=== PATIENT | female | born 1960 | race Caucasian/White ===

== ENCOUNTER 2019-09-18 17:12 | Observation (INO) | payer MEDICARE, MEDICAID, SELFPAY ==
--- NOTE | ~2019-09-18 | XR_ITS ---
EXAMINATION: XR hip RT 2V w AP pelvis EXAM DATE: 09/18/2019 18:27 INDICATION: Initial encounter following injury, with pain of the pelvis, right hip. Fall. TECHNIQUE: Right hip frontal, crosstable lateral and 'frog-leg' projections for interpretation. Front al projection pelvis. Comparison is made to prior examination from 01/01/2018. FINDINGS: Interval development of significant collapse of the right femoral head and severe osteoarth ritis likely secondary to femoral head avascular necrosis. Interval development of mild protrusio jaleel tabula. There are no acute fractures identified. Pelvic ring appears intact. Left hip arthroplasty. M ild to moderate lumbar levoscoliosis. Sacrum, sacroiliac joints, sacral arcuate lines are intact. IMPRESSION: 1. Development of right femoral head collapse, severe osteoarthritis likely from avascular necrosis. 2. Development of protrusio acetabula. 3. No acute fracture suspected. Reviewed, dictated and finalized at location A. PREAD FOLDER IMPRESSION: 1. Development of right femoral head collapse, severe osteoarthritis likely fr om avascular necrosis. 2. Development of protrusio acetabula. 3. No acute fracture suspected.
--- NOTE | ~2019-09-18 | CT_ITS ---
EXAMINATION: CT brain wo con EXAM DATE: 09/18/2019 18:09 INDICATION: Multiple falls, head injury. TECHNIQUE: Spiral CT of the head was performed without contrast. Axial, coronal and sagittal images were reviewed. The dose-length product (DLP) for this examination was 605.33 mGy-cm. The exposure w as tailored according to patient size, and iterative reconstruction (ASIR) was used as additional dos e reduction technique. There is no prior study for comparison. FINDINGS: There is no acute intraparenchymal hemorrhage. No evidence of intraparenchymal brain mass lesion. No evidence of acute infarction. Please note that initial head CT has limited sensitivity f or small or acute infarctions. There is small old right occipital lobe infarction. There are old sma ll to moderate regions of encephalomalacia in the frontal lobes inferomedially, location suggests cristiano ology of prior contusions. There is mild periventricular and subcortical hypodensity, nonspecific bu t probably related to small vessel ischemic disease. There is mild prominence of the sulci and vent ricles related to cerebral atrophy. There is intracranial carotid arteriosclerosis. There are no e xtra-axial collections. There is no mass effect or midline shift. The orbits are unremarkable. Sof t tissue is unremarkable. The visualized sinuses and mastoid air cells are well aerated. IMPRESSION: 1. No acute intracranial findings. 2. Chronic age related findings. 3. Old bifrontal small to moderate encephalomalacia. 4. Old small right occipital lobe infarction. Reviewed, dictated and finalized at location A. GE ASSISTANT
--- NOTE | ~2019-09-18 | XR_ITS ---
EXAMINATION: XR chest 2V EXAM DATE: 09/18/2019 18:27 INDICATION: Fall, weakness, high blood pressure. TECHNIQUE: Frontal and lateral projections of the chest obtained and reviewed. Comparison is made to prior examination from 11/03/2015. FINDINGS: The lungs are clear. There are no pleural effusions. The cardiomediastinal silhouette is within normal limits. There is no pneumothorax suspected. Development of moderate bilateral shoulde r osteoarthritis. IMPRESSION: No acute cardiopulmonary findings. Reviewed, dictated and finalized at location A. CTIOUS WASTE TECHNICIAN
[2019-09-18 17:18] VITALS: BP 138/69; PULSE 87; RESP 24; TEMP 36.6; O2SAT 98
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
--- NOTE | 2019-09-18 17:48 | ECG_ITS ---
Measurements Intervals [place] Rate: 77 P: 33 ND: 167 QRS: 40 QRSD: 93 T: 54 QT: 394 QTc: 446 Interpretive Statements SINUS RHYTHM BASELINE ARTIFACT- I, II, III, V1-V3 BORDERLINE ECG Electronically Signed On 09-19-2019 8:45:53 CORPORATE QUALITY MANAGER by Joes Perez D.O.
[2019-09-18] MEDS: SODIUM CHLORIDE 0.9% IV 1,000 ML 999 ML IV CONT (18:50)
[2019-09-18 18:51] VITALS: BP 129/87; PULSE 77; RESP 24; TEMP 36.8; O2SAT 97
[2019-09-18 19:09] LABS: Glucose Point of Care 58 (65-105)
[2019-09-18 19:10] LABS: Basophils Percent Auto 0.2 % (0.2-1.2); Eosinophils Absolute Auto 0.3 K/mm3 (0-0.3); Eosinophils Percent Auto 2.1 % (0-4.4); Hematocrit 42.3 % (37.0-47.0); Hemoglobin 13.2 g/dL (12.0-15.0); Immature Granulocyte Absolute 0.04 K/mm3 (0.00-0.031); Immature Granulocyte Percent A 0.3 % (0-0.5); Lymphocytes Absolute Auto 1.94 K/mm3 (0.9-3.2); Lymphocytes Percent Auto 16.2 % (18.3-44.2); Mean Corpuscular HGB Conc 31.2 g/dl (32-36); Mean Corpuscular Hemoglobin 29.3 pg (26-34); Mean Platelet Volume 9.6 fl (7.4-10.4); Monocytes Percent Auto 8.3 % (2.6-8.5); Neutrophils Absolute Auto 8.7 K/mm3 (1.3-6.7); Neutrophils Percent Auto 72.9 % (45.5-73.1); Platelet Count Result 321 k/mm3 (150-375); Red Cell Distribution Width 13.8 % (11.5-14.5); White Blood Count 11.9 K/mm3 (4.5-10.0)
[2019-09-18 19:18] LABS: Add Urine Microscopic? YES; Appearance Urine Cloudy (Clear); Bacteria Urine 1+ /hpf; Bilirubin Urine Negative (Negative); Blood Urine 2+ (Negative); Color Urine Yellow (Yellow); Glucose Urine UA Negative (Negative); Ketones Urine Negative (Negative); Leukocyte Esterase Ur 3+ LEU/UL (Negative); Mucus Urine Rare /lpf; Nitrate Urine Positive (Negative); Protein Urine 1+ mg/dL (Negative); RBC Urine 51-75 /hpf (0-2); Specific Grav Ur 1.012 (1.001-1.035); Urobilinogen Urine Negative mg/dL (<2.0); WBC Urine >75 /hpf
[2019-09-18 19:23] LABS: Blood Urea Nitrogen 14 mg/dL (7-17); Calcium 9.2 mg/dL (8.4-10.2); Carbon Dioxide 27 mmol/L (22-30); Chloride 100 mmol/L (98-107); Estimated CRCL calculation 85 ml/min; Estimated Glomerular Filt Rate > 60; Glucose 137 mg/dL (65-105); INR 0.9; Potassium 3.8 mmol/L (3.4-5.0); Prothrombin Time 12.1 Seconds (11.1-14.7); Sodium 138 mmol/L (137-145)
[2019-09-18 19:24] LABS: Partial Thromboplastin Time 27.1 SECONDS (22.3-36.8)
[2019-09-18 19:35] LABS: Troponin I < 0.012 ng/mL (0.000-0.034)
[2019-09-18 19:36] LABS: Glucose Point of Care 130 (65-105)
[2019-09-18] MEDS: CEPHALEXIN 500 MG CAPSULE PO (20:11)
[2019-09-18 20:54] VITALS: BP 131/78; PULSE 81; RESP 18; O2SAT 97
[2019-09-18 21:00] VITALS: BP 109/87; PULSE 97; RESP 18; TEMP 36.6; O2SAT 98; BMI 37.3
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
--- NOTE | 2019-09-18 21:21 | ADMGEN ---
This patient, Rosemary Gallardo, was admitted to [facility] Room 325-01 at 2105. Patient/family oriented to hospital policies and general routines including ID bracelet, bed and alarms, visiting hours, pain management, procedures, bathroom and other care routines, personal items, smoking policy, room service/diet, and visiting hours. Valuables list has been completed. Information on how to activate the Rapid Response Team has been discussed. Patient/Family are encouraged to report perceived risks to care and to ask questions if they do not understand what they are told or what they should do.
[2019-09-18 23:43] LABS: Glucose Point of Care 139 (65-105)
[2019-09-19] MEDS: MORPHINE SULFATE 4 MG/ML INJ 2 MG IV PUSH (02:23)
[2019-09-19 06:00] VITALS: BP 154/88; PULSE 80; RESP 18; TEMP 36.6; O2SAT 96
[2019-09-19 06:20] LABS: Basophils Percent Auto 0.2 % (0.2-1.2); Eosinophils Absolute Auto 0.3 K/mm3 (0-0.3); Eosinophils Percent Auto 2.5 % (0-4.4); Hematocrit 41.1 % (37.0-47.0); Hemoglobin 12.6 g/dL (12.0-15.0); Immature Granulocyte Absolute 0.05 K/mm3 (0.00-0.031); Immature Granulocyte Percent A 0.5 % (0-0.5); Lymphocytes Absolute Auto 1.97 K/mm3 (0.9-3.2); Lymphocytes Percent Auto 19.1 % (18.3-44.2); Mean Corpuscular HGB Conc 30.7 g/dl (32-36); Mean Corpuscular Hemoglobin 28.8 pg (26-34); Mean Corpuscular Volume 93.8 fl (80-100); Mean Platelet Volume 9.7 fl (7.4-10.4); Monocytes Absolute Auto 0.9 K/mm3 (0.1-0.6); Monocytes Percent Auto 8.8 % (2.6-8.5); Neutrophils Absolute Auto 7.1 K/mm3 (1.3-6.7); Neutrophils Percent Auto 68.9 % (45.5-73.1); Platelet Count Result 284 k/mm3 (150-375); Red Blood Count 4.38 M/mm3 (4.2-5.4); Red Cell Distribution Width 13.8 % (11.5-14.5); White Blood Count 10.3 K/mm3 (4.5-10.0)
[2019-09-19 07:33] LABS: Blood Urea Nitrogen 11 mg/dL (7-17); Calcium 8.8 mg/dL (8.4-10.2); Carbon Dioxide 27 mmol/L (22-30); Chloride 106 mmol/L (98-107); Estimated CRCL calculation 84 ml/min; Estimated Glomerular Filt Rate > 60; Glucose 106 mg/dL (65-105); Potassium 4.1 mmol/L (3.4-5.0); Sodium 139 mmol/L (137-145)
[2019-09-19] MEDS: ACETAMINOPHEN 325 MG TABLET 650 MG PO ×2 (08:16→22:07)
[2019-09-19 08:45] LABS: Glucose Point of Care 86 (65-105)
[2019-09-19] MEDS: INSULIN GLARGINE (*BKC) 100 UNITS/ML 22 UNITS SUB-Q (09:23)
[2019-09-19 09:27] VITALS: BP 152/86; PULSE 73; RESP 18; TEMP 36.7; O2SAT 96
[2019-09-19] MEDS: ARIPIPRAZOLE 10 MG TABLET 20 MG PO (09:30)
[2019-09-19] MEDS: ASPIRIN 81 MG ENTERIC TABLET PO (09:36)
[2019-09-19] MEDS: ATORVASTATIN 40 MG TABLET 80 MG PO (09:36)
[2019-09-19] MEDS: DICLOFENAC SOD 75 MG TABLET.EC PO ×2 (09:37→17:07)
[2019-09-19] MEDS: DOCUSATE SODIUM 100 MG CAPSULE PO ×2 (09:37→17:07)
[2019-09-19] MEDS: LEVOTHYROXINE SODIUM 150 MCG TABLET PO (09:37)
[2019-09-19] MEDS: busPIRone HCL 10 MG TABLET PO ×3 (09:37→17:06)
[2019-09-19] MEDS: lisinopriL 20 MG TABLET 40 MG PO (09:38)
[2019-09-19] MEDS: CEPHALEXIN 500 MG CAPSULE PO ×3 (10:47→22:06)
[2019-09-19 12:24] LABS: Glucose Point of Care 174 (65-105)
--- NOTE | 2019-09-19 12:47 | PM.IMPN ---
Progress Note: A&P Assessment and Plan (1) Avascular necrosis of bone of right hip: Code(s): M87.051 - Idiopathic aseptic necrosis of right femur Status: Acute Assessment and Plan: Pain is reasonable today. Per nursing, Dr. Munoz will not be doing surgery; possibly follow up with Dr. Celis as outpatient for elective surgery. Do to multiple recent falls, plan will be for placement in SNF for rehab. CC to work on placement Pain control Appreciate Ortho recommendations. PT/OT (2) Diabetes: Qualifiers: Diabetes mellitus type: type 2 Diabetes mellitus superintendent marine oil terminal insulin use: with superintendent marine oil terminal use Diabetes mellitus complication status: without complication Qualified Code(s): E11.9 - Type 2 diabetes mellitus without complications; Z79.4 - terminal supervisor (current) use of insulin Code(s): E11.9 - Type 2 diabetes mellitus without complications Status: Chronic Assessment and Plan: BGL reasonable in the 80s-100s. Continue Accu-Cheks. Sliding scale insulin coverage. Hypoglycemic protocol. Continue sitagliptin. Continue long-acting glargine insulin. (3) Hypertension: Qualifiers: Hypertension type: unspecified Qualified Code(s): I10 - Essential (primary) hypertension Code(s): I10 - Essential (primary) hypertension Status: Chronic Assessment and Plan: BP 150s sys Continue lisinopril. Continue to monitor Consider PRN IV hydralizine if needed (4) Hypothyroid: Qualifiers: Hypothyroidism type: unspecified Qualified Code(s): E03.9 - Hypothyroidism, unspecified Code(s): E03.9 - Hypothyroidism, unspecified Status: Chronic Assessment and Plan: Continue levothyroxine. (5) Hyperlipidemia: Qualifiers: Hyperlipidemia type: unspecified Qualified Code(s): E78.5 - Hyperlipidemia, unspecified Code(s): E78.5 - Hyperlipidemia, unspecified Status: Chronic Assessment and Plan: Continue atorvastatin. (6) Abnormal urinalysis: Code(s): R82.90 - Unspecified abnormal findings in urine Status: Acute Assessment and Plan: Patient is on Keflex 500 mg Q8 hr. No symptoms today Await urine cultures Tailor abx to sensitivities d/c abx if no grwoth Subjective Date/time seen: 09/19/19 12:47 Interval history: Patient is a 59 yo F with history of DM and avascular necrosis of right hip likely from OA who is here for recurrent falls due to right hip pain/weakness. Patient states her pain is okay today. She has trouble moving at home but usually uses a walker, but recently had 2 falls. No other complaints today. ROS she does not brbpr on toilet tissue in the past. Denies f/c/ns, headaches, dizziness, lightheadedness, cp/palpitations, sob, cough, abd pain, n/v/d/c, melena, dysuria, hematuria, calf pain/swelling, s/sx stroke Review of Systems Review of Systems: All systems reviewed & are unremarkable except as noted in HPI and below Exam Narrative: Exam Narrative: Patient lying supine in bed, no acute distress Const: General: cooperative, alert, awake, ill appearing chronically and poor hygiene Nutritional Appearance: obese Orientation/consciousness: oriented x3 HENMT: Head: normal to inspection General nose exam: external nose normal Face and sinus: face symmetric Eyes: General: appearance normal, both eyes and all related structures EOM: EOM intact bilaterally Neck: Neck: trachea midline and supple Resp: Effort & Inspection: normal respiratory effort Auscultation: clear to auscultation bilaterally Cardio: Rate: regular rate Rhythm: regular rhythm Heart sounds: no murmurs GI: GI Palp: No abdominal tenderness Auscultation: normal bowel sounds Skin
[2019-09-19 14:00] VITALS: BP 159/78; PULSE 78; RESP 20; TEMP 36.5; O2SAT 96
[2019-09-19 17:28] LABS: Glucose Point of Care 160 (65-105)
[2019-09-19 20:26] LABS: Glucose Point of Care 124 (65-105)
[2019-09-19 22:00] VITALS: BP 140/58; PULSE 78; RESP 18; TEMP 36.8; O2SAT 96
[2019-09-19] MEDS: INSULIN GLARGINE (*BKC) 100 UNITS/ML 24 UNITS SUB-Q (22:09)
[2019-09-20 06:00] VITALS: BP 149/69; PULSE 71; RESP 18; TEMP 36.4; O2SAT 97
[2019-09-20] MEDS: LEVOTHYROXINE SODIUM 150 MCG TABLET PO (06:33)
[2019-09-20] MEDS: CEPHALEXIN 500 MG CAPSULE PO ×3 (06:34→21:24)
[2019-09-20 06:41] LABS: Hematocrit 40.4 % (37.0-47.0); Hemoglobin 12.8 g/dL (12.0-15.0); Mean Corpuscular HGB Conc 31.7 g/dl (32-36); Mean Corpuscular Hemoglobin 29.2 pg (26-34); Mean Corpuscular Volume 92.2 fl (80-100); Mean Platelet Volume 9.4 fl (7.4-10.4); Platelet Count Result 275 k/mm3 (150-375); Red Blood Count 4.38 M/mm3 (4.2-5.4); Red Cell Distribution Width 13.7 % (11.5-14.5); White Blood Count 8.2 K/mm3 (4.5-10.0)
[2019-09-20 07:28] LABS: Glucose Point of Care 96 (65-105)
[2019-09-20 08:18] VITALS: BP 167/73; PULSE 74; RESP 18; TEMP 36.6; O2SAT 97
[2019-09-20] MEDS: ARIPIPRAZOLE 10 MG TABLET 20 MG PO (08:24)
[2019-09-20] MEDS: ACETAMINOPHEN 325 MG TABLET 650 MG PO ×2 (08:24→20:12)
[2019-09-20] MEDS: ATORVASTATIN 40 MG TABLET 80 MG PO (08:25)
[2019-09-20] MEDS: busPIRone HCL 10 MG TABLET PO ×3 (08:25→18:51)
[2019-09-20] MEDS: DICLOFENAC SOD 75 MG TABLET.EC PO ×2 (08:25→18:52)
[2019-09-20] MEDS: ASPIRIN 81 MG ENTERIC TABLET PO (08:25)
[2019-09-20] MEDS: lisinopriL 20 MG TABLET 40 MG PO (08:26)
[2019-09-20] MEDS: DOCUSATE SODIUM 100 MG CAPSULE PO ×2 (08:26→18:52)
[2019-09-20 08:32] LABS: Glucose Point of Care 164 (65-105)
[2019-09-20 11:57] LABS: Glucose Point of Care 144 (65-105)
--- NOTE | 2019-09-20 13:33 | PM.IMPN ---
Progress Note: A&P Assessment and Plan (1) Avascular necrosis of bone of right hip: Code(s): M87.051 - Idiopathic aseptic necrosis of right femur Status: Acute Assessment and Plan: Pain is reasonable today. Dr. Munoz will not be doing surgery; possibly follow up with Dr. Celis as outpatient for elective surgery. Due to multiple recent falls, plan will be for placement in SNF for rehab. CC to work on placement Pain control Appreciate Ortho recommendations. PT/OT (2) Diabetes: Qualifiers: Diabetes mellitus type: type 2 Diabetes mellitus custodial insulin use: with custodial use Diabetes mellitus complication status: without complication Qualified Code(s): E11.9 - Type 2 diabetes mellitus without complications; Z79.4 - alf (current) use of insulin Code(s): E11.9 - Type 2 diabetes mellitus without complications Status: Chronic Assessment and Plan: BGL reasonable in the 90s-100s. Continue Accu-Cheks. Sliding scale insulin coverage. Hypoglycemic protocol. Continue sitagliptin. Continue long-acting glargine insulin. (3) Hypertension: Qualifiers: Hypertension type: unspecified Qualified Code(s): I10 - Essential (primary) hypertension Code(s): I10 - Essential (primary) hypertension Status: Chronic Assessment and Plan: BP 160s sys Continue lisinopril. Continue to monitor PRN IV hydralizine with parameters set (4) Hypothyroid: Qualifiers: Hypothyroidism type: unspecified Qualified Code(s): E03.9 - Hypothyroidism, unspecified Code(s): E03.9 - Hypothyroidism, unspecified Status: Chronic Assessment and Plan: Continue levothyroxine. (5) Hyperlipidemia: Qualifiers: Hyperlipidemia type: unspecified Qualified Code(s): E78.5 - Hyperlipidemia, unspecified Code(s): E78.5 - Hyperlipidemia, unspecified Status: Chronic Assessment and Plan: Continue atorvastatin. (6) Abnormal urinalysis: Code(s): R82.90 - Unspecified abnormal findings in urine Status: Acute Assessment and Plan: Patient is on Keflex 500 mg Q8 hr. No symptoms today Cultures show E. Coli; await sensitivities Tailor abx to sensitivities d/c abx if no growth Subjective Date/time seen: 09/20/19 13:33 Interval history: Patient is a 59 yo F with history of DM and avascular necrosis of right hip likely from OA who is here for recurrent falls due to right hip pain/weakness. Patient states her pain is okay today; about the same as yesterday. She has trouble moving at home but usually uses a walker, but recently had 2 falls. No other complaints today. Denies f/c/ns, headaches, dizziness, lightheadedness, cp/palpitations, sob, cough, abd pain, n/v/d/c, melena, dysuria, hematuria, calf pain/swelling, s/sx stroke. Review of Systems Review of Systems: All systems reviewed & are unremarkable except as noted in HPI and below Exam Narrative: Exam Narrative: Patient lying supine in bed, no acute distress Const: General: cooperative, alert, awake, ill appearing chronically and poor hygiene Nutritional Appearance: obese Orientation/consciousness: oriented x3 HENMT: Head: normal to inspection General nose exam: external nose normal Face and sinus: face symmetric Eyes: General: appearance normal, both eyes and all related structures EOM: EOM intact bilaterally Neck: Neck: trachea midline and supple Resp: Effort & Inspection: normal respiratory effort Auscultation: clear to auscultation bilaterally Cardio: Rate: regular rate Rhythm: regular rhythm Heart sounds: no murmurs GI: GI Palp: No abdominal tenderness Auscultation: normal bowel sounds Skin: General ski
[2019-09-20 14:30] VITALS: BP 128/76; PULSE 76; RESP 20; TEMP 36.9; O2SAT 97
[2019-09-20] MEDS: INSULIN GLARGINE (*BKC) 100 UNITS/ML 11 UNITS SUB-Q (15:34)
--- NOTE | 2019-09-20 15:36 | PC.NURSE ---
Morning lantus not given, Dipak rashid notified 1500 order received for 11 units now.
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
[2019-09-20 17:54] LABS: Glucose Point of Care 114 (65-105)
[2019-09-20] MEDS: INSULIN GLARGINE (*BKC) 100 UNITS/ML 24 UNITS SUB-Q (20:13)
[2019-09-20 20:23] LABS: Glucose Point of Care 170 (65-105)
[2019-09-20 22:00] VITALS: BP 132/50; PULSE 78; RESP 16; TEMP 36.2; O2SAT 87
[2019-09-21] MEDS: ACETAMINOPHEN 325 MG TABLET 650 MG PO (04:12)
[2019-09-21] MEDS: CEPHALEXIN 500 MG CAPSULE PO (05:28)
[2019-09-21] MEDS: LEVOTHYROXINE SODIUM 150 MCG TABLET PO (05:28)
[2019-09-21 06:00] VITALS: BP 143/67; PULSE 73; RESP 18; TEMP 36.7; O2SAT 95
[2019-09-21 07:50] LABS: Glucose Point of Care 111 (65-105)
[2019-09-21] MEDS: busPIRone HCL 10 MG TABLET PO ×2 (08:15→12:34)
[2019-09-21] MEDS: ARIPIPRAZOLE 10 MG TABLET 20 MG PO (08:15)
[2019-09-21] MEDS: DICLOFENAC SOD 75 MG TABLET.EC PO (08:16)
[2019-09-21] MEDS: ASPIRIN 81 MG ENTERIC TABLET PO (08:16)
[2019-09-21] MEDS: DOCUSATE SODIUM 100 MG CAPSULE PO (08:16)
[2019-09-21] MEDS: ATORVASTATIN 40 MG TABLET 80 MG PO (08:16)
[2019-09-21] MEDS: lisinopriL 20 MG TABLET 40 MG PO (08:21)
[2019-09-21 08:22] VITALS: BP 149/70; PULSE 74; RESP 18; O2SAT 96
[2019-09-21] MEDS: INSULIN GLARGINE (*BKC) 100 UNITS/ML 22 UNITS SUB-Q (09:08)
[2019-09-21] MEDS: NITROFURANTOIN MONOHYD MACROCR 100 MG CAP PO (09:10)
--- NOTE | 2019-09-21 11:26 | PCOTNOTE ---
Attempted OT treatment session. Patient requesting that OT come back later despite encouragement from OT. Will attempt treatment at later time.
[2019-09-21 11:37] LABS: Glucose Point of Care 122 (65-105)
[2019-09-21 14:00] VITALS: BP 146/75; PULSE 84; RESP 16; TEMP 36.5; O2SAT 97
--- NOTE | 2019-09-21 15:22 | PM.DS ---
DS: Diagnosis Admitting Diagnosis Admitting Diagnosis: Idiopathic aseptic necrosis of right femur Discharge Diagnosis (1) Avascular necrosis of bone of right hip: Code(s): M87.051 - Idiopathic aseptic necrosis of right femur Status: Acute Assessment and Plan: Pain is reasonable today. Dr. Munoz will not be doing surgery. She has seen Dr Celis in the past but she reports he will no longer preform surgery on her. She has an appointment at [facility] with an orthopedic doctor 10/14/2019. She did well with PT/OT today, walked 60 feet with a walker. Insurance did not approve SNF placement. She will be discharged home to her [facility] with Home Health. He will be able to assist her. She will also need to purchase a Walker to use to help with stabolization and then follow up with [facility] with appointment 10/14/2019. PRN pain medications as tolerated. (2) Diabetes: Qualifiers: Diabetes mellitus complication status: without complication Diabetes mellitus intermediate teacher insulin use: with group home use Diabetes mellitus type: type 2 Qualified Code(s): E11.9 - Type 2 diabetes mellitus without complications; Z79.4 - jail (current) use of insulin Code(s): E11.9 - Type 2 diabetes mellitus without complications Status: Chronic Assessment and Plan: BGL reasonable in the 100-120s.Continue long-acting glargine insulin and sitagliptin. Stable at this time. Continue checking glucose. (3) Hypertension: Qualifiers: Hypertension type: unspecified Qualified Code(s): I10 - Essential (primary) hypertension Code(s): I10 - Essential (primary) hypertension Status: Chronic Assessment and Plan: BP has been elevated since arrival 140's systolic. Could be secondary to pain. Will have her continue home medications. Check BP twice daily. (4) Hypothyroid: Qualifiers: Hypothyroidism type: unspecified Qualified Code(s): E03.9 - Hypothyroidism, unspecified Code(s): E03.9 - Hypothyroidism, unspecified Status: Chronic Assessment and Plan: Continue levothyroxine. (5) Hyperlipidemia: Qualifiers: Hyperlipidemia type: unspecified Qualified Code(s): E78.5 - Hyperlipidemia, unspecified Code(s): E78.5 - Hyperlipidemia, unspecified Status: Chronic Assessment and Plan: Continue atorvastatin. (6) Abnormal urinalysis: Code(s): R82.90 - Unspecified abnormal findings in urine Status: Acute Assessment and Plan: Patient is on Keflex 500 mg Q8 hr. No symptoms today Cultures show E. Coli and sensitivities showed resistance to Keflex. This morning she was switched to Macrobid for 7 days. Recommend probiotic. DS: Summary Hospital Course Reason for hospitalization: The patient is a 59-year-old woman with a history of diabetes, presented to the hospital after multiple falls at home and having increased pain to her right hip. Initial vitals showed temp 97.8? fever, BP 138/69, heart rate 87, respiratory rate 24, oxygenation 98% on room air. Initial lab showed slight leukocytosis at 11,900. Normal coag panel. Normal BMP with glucose at 137. Normal troponin. Urine was cloudy, 1+ protein, positive nitrite, 3+ leukocyte esterase, greater than 75 WBCs, urine bacteria 1+. CT Brain showed No acute intracranial findings. 2. Chronic age related findings. Old bifrontal small to moderate encephalomalacia. Old small right occipital lobe infarction. CXR showed No acute cardiopulmonary findings. Hip and Pelvis X-ray showed Development of right femoral head collapse, severe osteoarthritis likely from avascular necrosis. Development of protrusio acetabula. No acute fracture s
== END 2019-09-21 16:40 | disposition home health service (06) ==
LOC: ANHED 20:12 → ANH3MEDSUR 20:16
PROVIDERS: Physician Assistant; Admitting Provider Family Medicine; Emergency Provider Emergency Medicine; PCP Internal Medicine; Visit Provider Physician Assistant
DX: M87.051 Idiopathic aseptic necrosis of right femur (principal); M16.7 Other unilateral secondary osteoarthritis of hip; N39.0 Urinary tract infection, site not specified; B96.20 Unspecified Escherichia coli [E. coli] as the cause of diseases classified elsewhere; E11.649 Type 2 diabetes mellitus with hypoglycemia without coma; E11.36 Type 2 diabetes mellitus with diabetic cataract; H26.9 Unspecified cataract; I10 Essential (primary) hypertension; E03.9 Hypothyroidism, unspecified; E78.5 Hyperlipidemia, unspecified; G47.30 Sleep apnea, unspecified; G93.89 Other specified disorders of brain; R41.3 Other amnesia; N80.9 Endometriosis, unspecified; Z79.4 Long term (current) use of insulin; Z79.82 Long term (current) use of aspirin; Z79.899 Other long term (current) drug therapy; Z80.0 Family history of malignant neoplasm of digestive organs; Z82.3 Family history of stroke; Z86.69 Personal history of other diseases of the nervous system and sense organs; Z87.891 Personal history of nicotine dependence; Z96.642 Presence of left artificial hip joint; Z96.651 Presence of right artificial knee joint; W18.39XA Other fall on same level, initial encounter; Y93.89 Activity, other specified
CPT/HCPCS: 36415; 51701; 70450; 71046; 73502; 73521; 80048; 81001; 82948; 84484; 85025; 85027; 85610; 85730; 87077; 87086; 87088; 87186; 93005; 96374; 97110; 97161; 97165; 97535; 99285; A9270; G0378; J1815; J2270; J7030

== ENCOUNTER 2019-12-24 03:39 | Emergency (ER) | payer MEDICARE, MEDICAID, SELFPAY ==
--- NOTE | ~2019-12-24 | XR_ITS ---
EXAMINATION: XR hip RT 2V w AP pelvis DATE: 12/24/2019 04:00 INDICATION: Right hip pain. Fall. TECHNIQUE: An anteroposterior view of the pelvis and 2 views of right hip were obtained. COMPARISON: Pelvis and right hip radiographs 09/18/2019, 01/01/2018 FINDINGS: There is lumbar levoscoliosis and moderate spondylosis. There is a total left hip arthropla sty in near-anatomic alignment. No periprosthetic lucency to suggest loosening or infection. No fract ure. There is advanced right hip osteoarthritis including flattening of superior femoral head. IMPRESSION: 1. Advanced right hip osteoarthritis with interval worsening of the articular surface collapse of fem oral head. 2. Total left hip arthroplasty in near-anatomic alignment. Reviewed, dictated and finalized at location A. IMPRESSION: 1. Advanced right hip osteoarthritis with interval worsening of the articular s urface collapse of femoral head. 2. Total left hip arthroplasty in near-anatomic alignment.
[2019-12-24 03:43] VITALS: BP 195/85; PULSE 69; RESP 18; TEMP 36.6; O2SAT 98
--- NOTE | 2019-12-24 03:49 | ED.LOWEXIN ---
HPI - Extremity Injury (Lower) General Chief Complaint: Extremity Injury, Lower Stated Complaint: fall Time Seen by Provider: 12/24/19 03:41 History of Present Illness HPI Narrative: Patient is a 59-year-old female who presents ER with right hip pain. Patient has chronic right hip issues and is told she needs a hip replacement. She was trying to get a bed when she slipped and fell on the floor. EMS came for lift assist but then patient decided she should be evaluated. Patient has been able to ambulate since falling. She has no new numbness or tingling to the leg. Pain is controlled at this time. She did not strike her head or lose consciousness in the fall. Related Data Home Medications Medication Instructions Recorded Confirmed aspirin 81 mg tablet,delayed 81 mg PO DAILY 07/23/19 09/18/19 release atorvastatin 80 mg tablet 80 mg PO DAILY 07/23/19 09/18/19 insulin glargine 100 unit/mL (3 22 unit SUB-Q DAILY ml 07/23/19 09/18/19 mL) subcutaneous pen Lantus Solostar U-100 Insulin 24 unit SUBCUT HS 09/18/19 09/18/19 aripiprazole 20 mg PO DAILY 09/18/19 09/18/19 docusate sodium [Colace] 100 mg PO BID 09/18/19 09/18/19 Allergies Allergy/AdvReac Type Severity Reaction Status Date / Time No Known Allergies Allergy Verified 09/18/19 17:28 Review of Systems Review of Systems: All systems reviewed & are unremarkable except as noted in HPI and below Musculoskeletal: Comments: Chronic right hip pain PMFSH Social History Social History Smoking packs per day: 0.5 Smoking cigarettes per day: 10.0 Years smoked: 20 Smoking pack-years: 10.00 Smoking status: Former smoker Tobacco type: cigarettes Smoking end date: 09/15/95 Alcohol intake: current Substance use: never Substance use type: marijuana Gender identity (if verbalized by the patient): Female Spiritual care concerns: No Agree to blood products: Yes Exam Narrative: Exam Narrative: GENERAL: Well-appearing, well-nourished, and in no acute distress. HEAD: Normocephalic, atraumatic. ENT: Mucous membranes moist. CHEST: Clear to auscultation. No respiratory distress. HEART: Regular rate and rhythm. No murmur heard. Normal peripheral pulses. EXTREMITIES: Mild decrease in range of motion at the right hip but seems to move without pain. No shortening of the right lower extremity. Back: No midline tenderness lumbar spine or paraspinal muscular tenderness. NEURO: Alert and oriented x3. PSYCH: Normal mood and affect. Course Course Emergency Course: Informed of results. Discharge home. Vital Signs Vital signs: Vital Signs Temperature 97.9 F 12/24/19 03:43 Pulse Rate 69 12/24/19 03:43 Respiratory Rate 18 12/24/19 03:43 Blood Pressure 195/85 H 12/24/19 03:43 Pulse Oximetry 98 12/24/19 03:43 Temperature 97.9 F 12/24/19 03:43 Pulse Rate 68 12/24/19 05:29 Respiratory Rate 18 12/24/19 05:29 Blood Pressure 179/83 H 12/24/19 05:29 Pulse Oximetry 97 12/24/19 05:29 MDM - Extremity Injury (Lower) Imaging Data Radiologist's impression: Right hip and pelvis: No acute changes per vision radiology. Chronic femoral head changes. Discharge Plan Discharge Clinical Impression: Avascular necrosis of bone of right hip Patient Disposition: Home, Self-Care Condition: Stable Instructions: Hip Pain (ED) Additional Instructions: There is no evidence of fracture in your hip. Take Tylenol and ibuprofen as needed for pain. Return to the ER if you lose consciousness, you have new injury, you have other concerns. Prescriptions: No Action aspirin 81 mg tablet,delayed release (DR/EC) 81 mg PO DAILY RF: 0 atorvastatin 80 mg tablet 80 mg PO DAILY RF: 0 Lantus Solostar U-100 Insulin 100 unit/mL (3 mL) insulin pen 22 unit SUB-Q DAILY RF: 0 docusate sodium [Colace] 100 mg Capsule 100 mg PO BID RF: 0 aripiprazole 20 mg tablet
[2019-12-24 05:29] VITALS: BP 179/83; PULSE 68; RESP 18; O2SAT 97
[2019-12-24 07:15] VITALS: BP 196/90; PULSE 67; O2SAT 99
== END 2019-12-24 07:20 | disposition home or self-care (01) ==
PROVIDERS: Emergency Provider Emergency Medicine; PCP Internal Medicine
DX: M87.9 Osteonecrosis, unspecified (principal); Z87.891 Personal history of nicotine dependence; M16.11 Unilateral primary osteoarthritis, right hip; Z96.642 Presence of left artificial hip joint; Z79.82 Long term (current) use of aspirin; Z79.4 Long term (current) use of insulin
CPT/HCPCS: 73502; 73521; 99283; A9270

== ENCOUNTER 2020-03-22 09:26 | Outpatient (CLI) | payer MEDICARE, MEDICAID, SELFPAY ==
[2020-03-22 10:37] LABS: Alanine Aminotransferase 21 U/L (4-35); Albumin Level 3.7 g/dL (3.5-5.1); Alkaline Phosphatase 84 U/L (38-126); Aspartate Amino Transferase 24 U/L (14-36); Bilirubin,Total 0.6 mg/dL (0.2-1.3); Blood Urea Nitrogen 24 mg/dL (7-17); Calcium 8.8 mg/dL (8.4-10.2); Carbon Dioxide 26 mmol/L (22-30); Chloride 107 mmol/L (98-107); Estimated Glomerular Filt Rate > 60; Glucose 222 mg/dL (65-105); Potassium 3.9 mmol/L (3.4-5.0); Sodium 138 mmol/L (137-145)
[2020-03-22 11:06] LABS: Thyroid Stimulating Hormone 0.046 uIU/mL (0.465-4.680)
[2020-03-22 11:28] LABS: Hemoglobin A1C 5.5 % (<5.7)
== END 2020-03-22 09:27 | disposition home or self-care (01) ==
LOC: ANHLAB 09:28
PROVIDERS: PCP Internal Medicine; Visit Provider Nurse Practitioner
DX: E11.9 Type 2 diabetes mellitus without complications (principal); E03.9 Hypothyroidism, unspecified; Z79.4 Long term (current) use of insulin
CPT/HCPCS: 36415; 80053; 83036; 84443

== ENCOUNTER 2020-05-07 21:34 | Emergency (ER) | payer MEDICARE, MEDICAID, SELFPAY ==
[2020-05-07] VITALS (38 sets, daily range): BP systolic 107–159; BP diastolic 49–93; PULSE 80–108; RESP 13–23; TEMP 36.3–36.4; O2SAT 90–100
--- NOTE | ~2020-05-07 | XR_ITS ---
EXAMINATION: XR hip RT 2V w AP pelvis EXAM DATE: 05/07/2020 22:00 INDICATION: TECHNIQUE: Right hip frontal, crosstable lateral projections for interpretation. Frontal projection p jimmy. Comparison is made to prior examination from 12/24/2019. FINDINGS: There is been interval right hip replacement. The right femoral head is completely superior ly dislocated out of the acetabular component. No evidence of hardware or osseous fracture. Pelvis al so intact. There is left hip replacement, appears intact. IMPRESSION: 1. Completely superiorly dislocated right femoral component. 2. Bilateral hip arthroplasties. Reviewed, dictated and finalized at location B.
--- NOTE | ~2020-05-07 | XR_ITS ---
EXAMINATION: XR hip RT min 2V EXAM DATE: 05/07/2020 22:29 INDICATION: Post reduction. TECHNIQUE: Right hip frontal, crosstable lateral projections for interpretation. Comparison is made t o prior examination from 05/07/2020. FINDINGS: The right femoral head has been reduced and is in expected position. No evidence of hardw are or osseous fracture. IMPRESSION: Status post right hip reduction. Reviewed, dictated and finalized at location B.
--- NOTE | 2020-05-07 21:42 | PC.NURSE ---
Patient being taken to xray.
[2020-05-07] MEDS: MORPHINE SULFATE 4 MG/ML INJ IV PUSH (21:52)
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
[2020-05-07] MEDS: PROPOFOL IV EMULSION 200 MG/20 ML VIAL 100 MG IV PUSH (22:14)
[2020-05-07] MEDS: SODIUM CHLORIDE 0.9% IV 1,000 ML 150 ML (22:31)
--- NOTE | 2020-05-07 22:45 | PC.NURSE ---
Patient's son calls to get information on patient status. This nurse inform him that the patient had her hip reduced with sedation and is now fully awake and talking. Patient's son states he will call back later for another update.
[2020-05-08] VITALS (44 sets, daily range): BP systolic 79–118; BP diastolic 44–75; PULSE 75–101; RESP 11–18; TEMP 36.4–36.6; O2SAT 93–98
--- NOTE | 2020-05-08 01:07 | PC.NURSE ---
Patient assisted onto bedpan and voided. Patient's own brace placed and secured back on patient.
--- NOTE | 2020-05-08 01:40 | PC.NURSE ---
Patient stating she is unable to get ahold of her son, requested this nurse to attempt to call him. This nurse contacted patient's son at the number provided by patient, , there was no answer, left a message.
--- NOTE | 2020-05-08 02:04 | PC.NURSE ---
This nurse attempted to contact patient's son, no answer, another message was left. Awaiting call back.
--- NOTE | 2020-05-08 02:30 | PC.NURSE ---
This nurse called patient's son, no answer, another message was left. Will continue to try to contact patient's son periodically.
--- NOTE | 2020-05-08 03:05 | PC.NURSE ---
This nurse attmepted to contact patient's son again, no answer. A message was left. Patient states she does not have a martinez to the house where she lives with her son. Patient states he will be the only one to let me in the house. I don't have a martinez. So he is who needs to come pick me up.
--- NOTE | 2020-05-08 03:49 | PC.NURSE ---
This nurse attempted to contact patient's son again, no answer, another message was left.
--- NOTE | 2020-05-08 05:04 | PC.NURSE ---
This nurse attempted to contact patient's son, no answer, another message was left. Will continue to attempt to get in touch with patient's son. Patient stating I have been trying to call too.
--- NOTE | 2020-05-08 06:32 | PC.NURSE ---
This nurse contacted patient's son, no answer, another message was left.
== END 2020-05-08 07:54 | disposition home or self-care (01) ==
PROVIDERS: Emergency Provider Emergency Medicine; PCP Internal Medicine
DX: S73.004A Unspecified dislocation of right hip, initial encounter (principal); Z96.643 Presence of artificial hip joint, bilateral; Z87.820 Personal history of traumatic brain injury; E11.9 Type 2 diabetes mellitus without complications; N80.9 Endometriosis, unspecified; E78.5 Hyperlipidemia, unspecified; E03.9 Hypothyroidism, unspecified; M16.11 Unilateral primary osteoarthritis, right hip; G47.30 Sleep apnea, unspecified; Z87.891 Personal history of nicotine dependence; W18.39XA Other fall on same level, initial encounter
CPT/HCPCS: 27250; 27265; 73502; 96374; 99285; J2270; J2704; J7030

== ENCOUNTER 2020-06-03 21:15 | Emergency (ER) | payer MEDICARE, MEDICAID, SELFPAY ==
[2020-06-03] VITALS (10 sets, daily range): BP systolic 104–191; BP diastolic 54–101; PULSE 74–129; RESP 13–25; TEMP 36.3–36.6; O2SAT 96–100
--- NOTE | ~2020-06-03 | XR_ITS ---
XR hip RT 2V w AP pelvis DATE: 06/03/2020 23:37 INDICATION: Right hip pain following fall. Right hip prosthesis dislocation TECHNIQUE: Portable AP and crosstable lateral views of right hip. AP pelvis. COMPARISON: 06/03/2020 right hip and pelvis FINDINGS: There is reduction of the dislocation at the right hip arthroplasty, the femoral head now n ormally articulating with the acetabular prosthesis. IMPRESSION: Reduction of right hip femoral head prosthesis dislocation Reviewed, dictated and finalized at location A.
--- NOTE | ~2020-06-03 | XR_ITS ---
XR hip RT 2V w AP pelvis DATE: 06/03/2020 22:28 INDICATION: Fall. Right hip pain. TECHNIQUE: AP pelvis. AP and crosstable lateral views of right hip COMPARISON: 05/07/2020 right hip FINDINGS: There is complete superolateral dislocation of the right femoral head prosthesis. No pelvic fracture or recent right hip fracture is evident. The pubic symphysis and sacroiliac joints are intact. IMPRESSION: Right femoral head hip prosthesis dislocation Reviewed, dictated and finalized at location A.
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
--- NOTE | 2020-06-03 22:08 | PC.NURSE ---
pt taken to xray at this time.
--- NOTE | 2020-06-03 22:12 | PC.NURSE ---
talked to md over mar orders. he states fentanyl and 2nd dose of zofran are mistaken entry.
[2020-06-03] MEDS: ONDANSETRON INJ 4 MG/2 ML VIAL IV PUSH (22:31)
[2020-06-03] MEDS: HYDROmorphone HCL INJ (*CRX) 1 MG/ML SYR 0.5 MG IV PUSH (22:31)
[2020-06-03] MEDS: SODIUM CHLORIDE 0.9% IV 1,000 ML 999 ML (23:00)
--- NOTE | 2020-06-03 23:01 | PC.NURSE ---
10mg etomidate given to pt by armand arnold per verbal order from kell tavarez at this time.
[2020-06-04] VITALS: BP 107/62; PULSE 80; RESP 14; O2SAT 99
[2020-06-04 00:55] VITALS: BP 99/54; PULSE 76; RESP 15; O2SAT 98
[2020-06-04 01:28] VITALS: BP 110/58; PULSE 78; RESP 15; O2SAT 96
[2020-06-04 02:37] VITALS: BP 116/68; PULSE 87; RESP 18; O2SAT 99
[2020-06-04 03:35] VITALS: BP 110/79; PULSE 68; RESP 19; O2SAT 99
== END 2020-06-04 03:39 | disposition home or self-care (01) ==
PROVIDERS: Emergency Provider Emergency Medicine; PCP Internal Medicine
DX: T84.020A Dislocation of internal right hip prosthesis, initial encounter (principal); E11.9 Type 2 diabetes mellitus without complications; N80.9 Endometriosis, unspecified; E78.5 Hyperlipidemia, unspecified; I10 Essential (primary) hypertension; E03.9 Hypothyroidism, unspecified; I25.2 Old myocardial infarction; G47.30 Sleep apnea, unspecified; Z96.651 Presence of right artificial knee joint; Z96.643 Presence of artificial hip joint, bilateral; Z87.891 Personal history of nicotine dependence; F41.9 Anxiety disorder, unspecified; F32.9 Major depressive disorder, single episode, unspecified
CPT/HCPCS: 27266; 73502; 96374; 96375; 99285; J1170; J2405; J7030

== ENCOUNTER 2021-02-11 14:37 | Emergency (ER) | payer MEDICARE, MEDICAID, SELFPAY ==
--- NOTE | ~2021-02-11 | XR_ITS ---
XR foot RT min 3V 02/11/2021 15:15 INDICATION: Right foot pain PROCEDURE: 4 views right foot COMPARISON: No prior studies for comparison. FINDINGS: Fracture, dislocation or subluxation is not identified. Small degenerative calcaneal enthes ophyte. The soft tissues appear within normal limits. No foreign bodies are identified. IMPRESSION: 1: NO ACUTE BONE OR JOINT ABNORMALITY IDENTIFIED. Reviewed, dictated and finalized at location A.
[2021-02-11 15:00] VITALS: BP 120/69; PULSE 78; RESP 18; TEMP 36.5; O2SAT 97
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
[2021-02-11 17:00] VITALS: BP 127/68; PULSE 70; RESP 14; O2SAT 99
== END 2021-02-11 17:15 | disposition home or self-care (01) ==
LOC: ANHED 16:31
PROVIDERS: Emergency Provider Emergency Medicine; PCP Internal Medicine
DX: S93.601A Unspecified sprain of right foot, initial encounter (principal); N80.9 Endometriosis, unspecified; E78.5 Hyperlipidemia, unspecified; I10 Essential (primary) hypertension; E03.9 Hypothyroidism, unspecified; I25.2 Old myocardial infarction; G47.30 Sleep apnea, unspecified; F41.9 Anxiety disorder, unspecified; F32.9 Major depressive disorder, single episode, unspecified; M16.11 Unilateral primary osteoarthritis, right hip; Z96.643 Presence of artificial hip joint, bilateral; Z96.651 Presence of right artificial knee joint; H26.9 Unspecified cataract; Z87.891 Personal history of nicotine dependence; X58.XXXA Exposure to other specified factors, initial encounter
CPT/HCPCS: 73630; 99283